=== PATIENT | male | born 2000 | race Caucasian/White ===

== ENCOUNTER 2024-06-21 20:41 | Emergency (ER) | payer OTHER ==
[2024-06-21] MEDS ORDERED: Zofran 4 MG/2 ML VIAL ONE (21:04)
[2024-06-21] MEDS ORDERED: TORAdol 30 mg Injection ONE (21:04)
[2024-06-21] MEDS ORDERED: Sodium Chloride 0.9% 1000 ML 1,000 ML ONE ×2 (21:05→21:14)
[2024-06-21] MEDS: Sodium Chloride 0.9% 1000 ML 1,000 ML IV STA (21:15)
[2024-06-21] MEDS: TORAdol 30 mg Injection IV ONE (21:15)
[2024-06-21] MEDS: Zofran 4 MG/2 ML VIAL IV ONE (21:16)
[2024-06-21 21:20] LABS: Absolute Neutrophil Ct (ANC) 11.48 x10^3/uL (1.78-5.38); BASOPHIL % 0.3 % (0.2-1.2); Basophil (Absolute #) 0.05 x10^3/uL (0.01-0.08); Eosinophil % 0.7 % (0.8-7.0); Eosinophil (Absolute #) 0.11 x10^3/uL (0.04-0.54); Hematocrit 42.8 % (40.1-51.0); IMMATURE GRAN # 0.07 x10^3u/L (0.001-0.031); IMMATURE GRAN % 0.5 % (0.001-0.429); Lymphocyte (Absolute #) 2.76 x10^3/uL (1.32-3.57); Mean Cell Volume 82.1 fL (79.0-92.2); Mean Corpuscular Hemoglobin 28.8 pg (25.7-32.2); Mean Platelet Volume 10.9 fL (9.4-12.4); Monocyte (Absolute #) 0.88 x10^3/uL (0.30-0.82); Monocytes % 5.7 % (5.3-12.2); Neutrophil % 74.8 % (34.0-67.9); Platelet Count 244 x10^3/uL (163-337); Red Blood Count 5.21 x10^6/uL (4.63-6.08); White Blood Count 15.4 x10^3/uL (4.23-9.07)
[2024-06-21 21:33] LABS: ALBUMIN 5.4 g/dL (3.5-5.0); ANION GAP 23.4 MEQ/L (5-15); BILIRUBIN,TOTAL 0.7 mg/dL (0.2-1.3); Calcium 10.4 mg/dL (8.4-10.2); Creatinine 1 0.93 mg/dL (0.66-1.25); EST GLOMERULAR FILTRATION RATE 116.1 ML/MIN; Potassium 3.2 mmol/L (3.5-5.1); Total Protein 8.5 g/dL (6.3-8.2)
[2024-06-21 22:27] LABS: Appearance Turbid (Clear); Bacteria None Seen /HPF (None Seen); Bilirubin Negative (Negative); Blood Large (Negative); Epithelial Cells None Seen /HPF (None Seen); Glucose, Urine Negative (Negative); Hyaline Casts NONE SEEN /LPF (0-2); Ketones 15 (Negative); Leukocyte Esterase Trace (Negative); Nitrite Negative (Negative); Ph 7.5 (4.6-8.0); Protein,Urine Dip Trace (Negative); RBC >100 /HPF (0-5)
--- NOTE | 2024-06-21 22:39 | ERPHSYRPT ---
- History of Present Illness Source: patient Exam Limitations: no limitations Physician History: Patient's had flank pain. It startedIn the right flank and radiates around to the right groin. It is constant but has episodic and spasmic type exacerbations. He has some nausea and feels like he is going to vomit. He has not had kidney stones before. He does not have any dysuria. He is had no fever or chills. Nothing really makes his symptoms better or worse. Allergies/Adverse Reactions: Penicillins Allergy (Mild, Verified 11/22/13 10:22) Hx Tetanus, Diphtheria Vaccination/Date Given: Yes Hx Influenza Vaccination/Date Given: Yes Hx Pneumococcal Vaccination/Date Given: No Travel Risk - International Travel Have you traveled outside of the country in past 3 weeks: No - Past Medical History Pertinent Past Medical History: No Neurological History: No Pertinent History ENT History: No Pertinent History Cardiac History: No Pertinent History Respiratory History: Other Endocrine Medical History: No Pertinent History Musculoskeletal History: No Pertinent History GI Medical History: No Pertinent History History: No Pertinent History Psycho-Social History: No Pertinent History Male Reproductive Disorders: No Pertinent History Other Medical History: mother states "he was when he was born,probably [place]". States sent to [facility] [place] for a few days and is now "perfectly healthy" - Past Surgical History Past Surgical History: Yes Neuro Surgical History: No Pertinent History Cardiac: No Pertinent History Respiratory: No Pertinent History Gastrointestinal: No Pertinent History Genitourinary: No Pertinent History Musculoskeletal: Other Male Surgical History: No Pertinent History Other Surgical History: phillip tubes to ears - Social History Smoking Status: Never smoker Exposure to second hand smoke: No Drug Use: none - Review of Systems Constitutional: No Symptoms Eyes: No Symptoms Respiratory: No Symptoms Cardiac: No Symptoms Abdominal/Gastrointestinal: No Symptoms Skin: No Symptoms All Other Systems: Reviewed and Negative - Nursing Vital Signs Nursing Vital Signs: Initial Vital Signs Blood Pressure 146/92 06/21/24 20:48 O2 Sat by Pulse Oximetry 100 06/21/24 20:48 Pain Scale Pain Intensity 0 - Physical Exam General Appearance: no apparent distress Eye Exam: PERRL/EOMI Respiratory Exam: normal breath sounds, lungs clear, No chest tenderness Cardiovascular Exam: regular rate/rhythm, normal heart sounds Gastrointestinal/Abdomen Exam: soft, normal bowel sounds, tenderness Back Exam: normal inspection, normal range of motion, No CVA tenderness, No v ertebral tenderness Neurologic Exam: alert, oriented x 3, cooperative, 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 Skin Exam: normal color, warm, dry SpO2: 99 Ordered Tests: Active Orders 24 hr Category Date Time Status ABDOMEN AND PELVIS W/0 CONTRAS [CT] Stat Exams 06/21/24 21:05 Completed CBC W DIFF Stat Lab 06/21/24 21:18 Completed CMP Stat Lab 06/21/24 21:18 Completed CULTURE,URINE Stat Lab 06/21/24 22:19 Received UA W/RFX UR CULTURE Stat Lab 06/21/24 22:19 Completed Medication Summary Discontinued Medications Generic Name Dose Route Start Last Admin Trade Name Freq PRN Reason Stop Dose Admin Sodium Chloride 1,000 mls @ 999 mls/hr 06/21/24 21:05 06/21/24 21:15 Sodium Chloride 0.9% 1000 Ml IV 06/21/24 22:05 999 mls/hr .Q1H1M STA Administration Sodium Chloride Confirm 06/21/24 21:05 Sodium Chloride 0.9% 1000 Ml Administered 06/21/24 21:06 Dose 1,000 mls @ ud .ROUTE .STK-MED ONE Sodium Chloride Confirm 06/21/24 21:14 Sodium Chloride 0.9% 1000 Ml Administered 06/21/24 21:15 Dose 1,000 mls @ ud .ROUTE .STK-MED ONE Ketorolac Tromethamine 30 mg 06/21/24 21:04 06/21/24 21:15 Ketorolac Tromethamine 30 Mg/Ml Inj IV 06/21/24 21:05 30 mg STAT ONE Administration Ketorolac Tromethamine Confirm 06/21/24 21:04 Ketorolac Tromethamine 30 Mg/Ml Inj Administered 06/21/24 21:05 Dose 30 mg .ROUTE .STK-MED ONE Ondansetron HCl 4 mg 06/21/24 21:04 06/21/24 21:16 Ondansetron Hcl 4 Mg/2 Ml Vial IV 06/21/24 21:05 4 mg STAT ONE Administration Ondansetron HCl Confirm 06/21/24 21:04 Ondansetron Hcl 4 Mg/2 Ml Vial Administered 06/21/24 21:05 Dose 4 mg .ROUTE .STK-MED ONE Lab/Rad Data: Laboratory Result Diagrams 06/21/24 21:18 06/21/24 21:18 Laboratory Results 06/21/24 06/21/24 06/21/24 Range/Units 22:19 21:18 21:18 WBC 15.4 H (4.23-9.07) x10^3/uL RBC 5.21 (4.63-6.08) x10^6/uL Hgb 15.0 (13.7-17.5) g/dL Hct 42.8 (40.1-51.0) % MCV 82.1 (79.0-92.2) fL MCH 28.8 (25.7-32.2) pg MCHC 35.0 (32.3-36.5) g/dL RDW 12.0 (11.6-14.4) % Plt Count 244 (163-337) x10^3/uL MPV 10.9 (9.4-12.4) fL Gran % 74.8 H (34.0-67.9) % Immature Gran % (Auto) 0.5 H (0.001-0.429) % Nucleat RBC Rel Count 0.0 (0.00-0.2) % Eos # (Auto) 0.11 (0.04-0.54) x10^3/uL Immature Gran # (Auto) 0.07 H (0.001-0.031) x10^3u/L Absolute Lymphs (auto) 2.76 (1.32-3.57) x10^3/uL Absolute Monos (auto) 0.88 H (0.30-0.82) x10^3/uL Absolute Nucleated RBC 0.00 (0.00-0.012) x10^3u/L Lymphocytes % 18.0 L (21.8-53.1) % Monocytes % 5.7 (5.3-12.2) % Eosinophils % 0.7 L (0.8-7.0) % Basophils % 0.3 (0.2-1.2) % Absolute Granulocytes 11.48 H (1.78-5.38) x10^3/uL Basophils # 0.05 (0.01-0.08) x10^3/uL Sodium 140 (135-145) mmol/L Potassium 3.2 L (3.5-5.1) mmol/L Chloride 102 (98-107) mmol/L Carbon Dioxide 19 L (22-30) mmol/L Anion Gap 23.4 H (5-15) MEQ/L BUN 12 (9-20) mg/dL Creatinine 0.93 (0.66-1.25) mg/dL Estimated GFR 116.1 ML/MIN Glucose 131 H (74-106) mg/dL Calcium 10.4 H (8.4-10.2) mg/dL Total Bilirubin 0.70 (0.2-1.3) mg/dL AST 40 (17-59) U/L ALT 37 (0-50) U/L Alkaline Phosphatase 92 (38-126) U/L Serum Total Protein 8.5 H (6.3-8.2) g/dL Albumin 5.4 H (3.5-5.0) g/dL Urine Color Dark Yellow (Yellow) Urine Appearance Turbid A (Clear) Urine pH 7.5 (4.6-8.0) Ur Specific Gardiner 1.020 (1.005-1.030) Urine Protein Trace A (Negative) Urine Glucose (UA) Negative (Negative) mg/dL Urine Ketones 15 A (Negative) Urine Blood Large A (Negative) Urine Nitrite Negative (Negative) Urine Bilirubin Negative (Negative) Urine Urobilinogen 1.0 A (0.2) mg/dL Ur Leukocyte Esterase Trace A (Negative) U Hyaline Cast (Auto) NONE SEEN (0-2) /LPF Urine Microscopic RBC >100 A (0-5) /HPF Urine Microscopic WBC 3-5 (0-5) /HPF Ur Epithelial Cells None Seen (None Seen) /HPF Urine Bacteria None Seen (None Seen) /HPF Urine Culture Reflexed YES (NO) - Progress Progress Note: On the differential is pyelonephritis, kidney stone,Intra-abdominal infection, gastroenteritis. CTs revealed a 4.5 proximal stone.He had mild hydronephrosis. His lab work all look good. He does not have a primary care doctor or urologist so I am going to try to find a urologist for him to follow-up withI am going to have him follow- up with .I will send him home with Alcides Dean and Flomax 06/21/24 23:35 Medical Desision Making - Independent Historian Additional History obtained from: Spouse - Diagnostic Testing Diagnostic test were ordered, analyzed, and reviewed by me: Yes Radiological Interpretation: Reviewed by me - Risk of complications Minimal Risk: Minimal risk of morbidity - Departure Departure Disposition: Home Clinical Impression: Kidney stone on left side Condition: Stable Critical Care Time: No Referrals: NATALYA AHN [COURTESY STAFF] - Follow up/PCP as directed Instructions: Kidney Stones (DC)
[2024-06-21 23:08] VITALS: BP 119/53; PULSE 82
--- NOTE | 2024-06-21 23:22 | XRAY ---
CLINICAL HISTORY: Flank pain COMPARISON: No prior studies available for comparison. TECHNIQUE: Non-contrast CT of the abdomen and pelvis was performed, with the following protocol: axial images, and reconstructed coronal and sagittal images. One of the following dose reduction techniques was utilized for this exam: Automated exposure control, adjustment of the mA and/or kV according to patient size, and use of iterative reconstruction. FINDINGS: Abdomen: Liver: Normal in size, shape, and density. No focal lesions, cysts, or masses were identified. Gallbladder and Biliary System: The gallbladder is normal in size and shape. No wall thickening, pericholecystic fluid, or gallstones were identified. Pancreas: Pancreatic head, body, and tail are visualized and appear normal in size and density. No pancreatic masses or calcifications were noted. Spleen: Normal in size, shape, and density. No splenic lesions or masses were identified. Kidneys and Adrenal Glands: Left kidney shows mild hydronephrosis due to a 4.[address] density 1030 HU in proximal ureter just distal to the pelviureteric junction at the L2-L3 intervertebral level. Left kidney appears slightly bulky. Right kidney is normal in size, shape, and position. No renal calculi or hydronephrosis on right side. Adrenal glands are unremarkable. Abdominal Aorta and Vessels: The abdominal aorta and major branches are patent without evidence of an aneurysm or significant atherosclerosis. Pelvis: Urinary Bladder: Normal in contour and wall thickness. No intraluminal lesions. Prostate: Normal in size and contour. No masses or abnormal thickening. Seminal Vesicles: Normal appearance without abnormal enlargement or mass. Peritoneal and Retroperitoneal Structures: No free fluid or abnormal fluid collections were identified within the abdomen or pelvis. No lymphadenopathy was noted. Bowel: The visualized bowel loops are normal in caliber and appearance. No evidence of bowel obstruction or wall thickening. Appendix is normal. Bones and Soft Tissues: Pelvic bones and soft tissues are unremarkable. No fractures or abnormal masses were identified. Slices through lung bases are clear. IMPRESSION: Left 4.[address] density 1030 HU in proximal ureter just distal to pelviureteric junction at L2-L3 intervertebral level, resulting in mild upstream hydroureteronephrosis . Electronically Signed by: Prakash Sewell MD. (06/21/2024 23:17:43 EDT)
[2024-06-21 23:40] VITALS: O2SAT 99
== END 2024-06-22 00:01 | disposition home or self-care (01) ==
LOC: ED 20:41
DX: N13.2 Hydronephrosis with renal and ureteral calculous obstruction (principal); R10.9 Unspecified abdominal pain; R11.0 Nausea; Z79.899 Other long term (current) drug therapy
CPT/HCPCS: 36415; 74176; 80053; 81001; 85025; 87086; 96361; 96374; 96375; 99284; J1885; J2405